=== PATIENT | female | born 1955 | race Caucasian/White ===

== ENCOUNTER 2021-09-30 19:46 | Emergency (ER) | payer OTHER, SELFPAY ==
--- NOTE | ~2021-09-30 | XR_ITS ---
EXAMINATION: XR WRIST, LEFT XR HAND, LEFT CLINICAL INFORMATION: Deformity. COMPARISON: None TECHNIQUE: 3 views of the left hand and wrist. FINDINGS: There is a comminuted fracture of the distal radial metaphysis. I suspect that this does involve the radial ulnar joint although I do not see the fracture traversing this region. There is significant dorsal angulation of the distal fracture fragment with some impaction and radial displacement of the distal fragment. An accessory ossicle is noted distal to the ulna. No other fractures or dislocations are seen. XR/XR hand wrist LT IMPRESSION: Comminuted distal radial fracture as described above.
--- NOTE | ~2021-09-30 | XR_ITS ---
EXAMINATION: XR WRIST, LEFT XR HAND, LEFT CLINICAL INFORMATION: Deformity. COMPARISON: None TECHNIQUE: 3 views of the left hand and wrist. FINDINGS: There is a comminuted fracture of the distal radial metaphysis. I suspect that this does involve the radial ulnar joint although I do not see the fracture traversing this region. There is significant dorsal angulation of the distal fracture fragment with some impaction and radial displacement of the distal fragment. An accessory ossicle is noted distal to the ulna. No other fractures or dislocations are seen. XR/XR wrist LT 2V IMPRESSION: Comminuted distal radial fracture as described above.
[2021-09-30 19:56] VITALS: BP 141/64; PULSE 77; RESP 18; TEMP 36.7; O2SAT 95; BMI 21.9
--- NOTE | 2021-09-30 20:11 | ED.EXTPRO ---
HPI - Extremity Problem General Chief complaint: Extremity Injury, Upper Stated complaint: fall Time Seen by Provider: 09/30/21 20:11 Source: patient Limitations: language barrier (Hospital process description writer utilized) History of Present Illness HPI Narrative: This is a 66-year-old female who was going up an escalator when she lost her footing and fell backward, turning and she fell. She and that on her left hand and injured her left wrist. She denies any other injuries. She did not hit her head. She is not on any anticoagulants, does take aspirin. She denies any numbness or tingling to her fingers on her left hand. Pain is moderately severe, worse with movement. The patient was medicated with fentanyl 50 mcg IV pre-hospital Related Data Previous Rx's Medication Instructions Recorded tramadol 50 mg tablet 50 - 100 mg PO Q4H PRN #20 tab 09/30/21 Allergies Allergy/AdvReac Type Severity Reaction Status Date / Time No Known Allergies Allergy Verified 09/30/21 20:18 Review of Systems Review of Systems: No fever or chills No nasal congestion, rhinorrhea, or sore throat No chest pain, shortness of breath, cough, palpitation No abdominal pain, nausea, vomiting, diarrhea, constipation No dysuria, urinary frequency, or hematuria No acute back pain No lower extremity swelling No headache, focal weakness or numbness, speech difficulty, confusion, dizziness No new rash or erythema to skin PMFSH Social History Social History Advance Directives: No Advance Directives Information Provided: No Physical Exam Vital Signs: Vital Signs: Last Vital Signs Temp 98.1 F 09/30/21 19:56 Pulse 77 09/30/21 19:56 Resp 18 09/30/21 19:56 BP 141/64 H 09/30/21 19:56 Pulse Ox 95 09/30/21 19:56 BMI result Body Mass Index 21.9 Const: Other: PERRLA Conj [place] Mucous membranes moist Throat clear Neck supple Lungs CTA Heart RRR no murmurs rubs or gallops Abs soft, non tender, non distended Extremities no pitting edema; left wrist with deformity and tenderness, no ecchymosis, left and fingers neurovascular intact. No left elbow or shoulder pain or tenderness Neuro alert and oriented x 3, non focal MDM - Extremity (Nontraumatic) MDM Narrative Medical decision making narrative: Patient with a fall and left wrist injury, has a comminuted distal radius fracture, with dorsal displacement. Hematoma block was placed with 2% lidocaine, 5 mL, after cleansing the skin with Betadine, with good affect. Reduction of the fracture and splinting were done, which the patient tolerated well. Case was discussed with Shantel of Orthopedics, and the patient will be contacted by Dr. Fabian's office as she will need ORIF Imaging Data Left wrist x-ray: Radiologist's impression: FINDINGS: There is a comminuted fracture of the distal radial metaphysis. I suspect that this does involve the radial ulnar joint although I do not see the fracture traversing this region. There is significant dorsal angulation of the distal fracture fragment with some impaction and radial displacement of the distal fragment. An accessory ossicle is noted distal to the ulna. No other fractures or dislocations are seen. XR/XR hand wrist LT IMPRESSION: Comminuted distal radial fracture as described above.? Procedures Orthopedic Fracture Reduction Fracture #1: Time Out Performed: Yes Side: left Analgesia: hematoma block Technique: direct manipulation and traction/counter-traction Post Reduction X-rays Demonstrate: acceptable reduction Post-reduction neuro exam: intact Post-reduction vascular exam: intact Splint Applied: Yes Patient Tolerated Procedure: well Orthopedic Splinting/Casting Injury #1: Side: left Upper Extremity Injury Location: wrist Upper Extremity Immobilizer: sugar tong splint Additional Comments: Left arms sling also applied. Splint placed by ED MD with the assistance of physician hotel assistant manager and tech and nurse, holding the patient's wrist in traction during application of the splint Discharge Plan Discharge Clinical Impression: Fracture of left wrist Instructions: Wrist Fracture in Adults (ED) Additional Instructions: Wear the splint and he has an ice pack off and on the next 24 hours. Follow up with Dr. Kinsey of Orthopedics, as you will need surgery to repair and stabilize your wrist. Use ibuprofen and Tylenol for pain. You can also use tramadol as prescribed Prescriptions: New tramadol 50 mg tablet 50 - 100 mg PO Q4H PRN (Reason: pain) Qty: 20 0RF Referrals: Vicente Kinsey MD [Physician] - 2 days
--- NOTE | 2021-09-30 21:30 | PC.NURSE ---
provider @bedside administering nerve block and performing L wrist reduction. pt rabia well. fiberglass splint and tegan wrap applied. pt to f/u with ortho after d/c. son present at bedside and v/u of home care as well
[2021-09-30] MEDS: Ibuprofen Oral Susp 200 MG/10 ML ORAL.SUSP 400 MG PO (22:51)
== END 2021-09-30 23:04 | disposition home or self-care (01) ==
PROVIDERS: Emergency Provider Emergency Medicine; PCP Internal Medicine
DX: S52.502A Unspecified fracture of the lower end of left radius, initial encounter for closed fracture (principal); W10.0XXA Fall (on)(from) escalator, initial encounter; Y93.9 Activity, unspecified; Y92.9 Unspecified place or not applicable; Y99.9 Unspecified external cause status
CPT/HCPCS: 29125; 73100; 73110; 73130; 99283; 99284

== ENCOUNTER 2021-10-05 07:15 | Outpatient (REF) | payer OTHER, SELFPAY ==
--- NOTE | ~2021-10-05 | XR_ITS ---
EXAMINATION: XR WRIST, LEFT CLINICAL INFORMATION: Pain COMPARISON: None TECHNIQUE: PA, lateral, and oblique views of the left wrist. FINDINGS: Fine osseous and soft tissue detail are obscured by overlying casting material. There is a transverse distal radial metaphyseal fracture again noted with slight dorsal displacement of the distal fragment. Ulnar styloid fracture is again noted. The carpal rows are well aligned. XR/XR wrist LT min 3V IMPRESSION: Distal radial metaphyseal fracture with partially improved alignment from prior. Ulnar styloid fracture.
== END 2021-10-05 07:16 | disposition home or self-care (01) ==
LOC: HO.HOSX 07:15
PROVIDERS: Visit Provider Physician Assistant
DX: M25.532 Pain in left wrist (principal); S52.322A Displaced transverse fracture of shaft of left radius, initial encounter for closed fracture; W01.0XXA Fall on same level from slipping, tripping and stumbling without subsequent striking against object, initial encounter; Y93.I9 Activity, other involving external motion; Y92.512 Supermarket, store or market as the place of occurrence of the external cause; Y99.8 Other external cause status; I11.0 Hypertensive heart disease with heart failure; I50.9 Heart failure, unspecified; E78.00 Pure hypercholesterolemia, unspecified
CPT/HCPCS: 29105; 73110; 99202

== ENCOUNTER 2021-10-12 05:53 | Day surgery (SDC) | payer OTHER, SELFPAY ==
--- NOTE | 2021-10-09 08:30 | HO.ANESPROP2 ---
Documented by User: Mendy Cavazos NP 10/09/21 09:14 HPI - Anesthesia Eval Consult details Narrative: 66yo F for Left Radius Distal Fracture ORIF Cardiac cleared Case reviewed with Dr James MCWILLIAMS Active Problems Active Problems: All Active Problems (Updated 10/09/21 @ 08:16 by Sallie Ashley RN) Fracture of left distal radius (Acute) Past Medical History Medical History Anxiety B12 deficiency Diastolic dysfunction Heart problem High blood pressure Hx of coronary angiogram Hyperlipidemia Long QT syndrome Nonischemic congestive cardiomyopathy Sebaceous cyst Subclinical hypothyroidism Syncope TIA (transient ischemic attack) Vitamin D deficiency Surgical History Surgical History Hx of bilateral cataract extraction Social History Social History (Updated 10/05/21 @ 08:38 by OG Feliz) Patient Tobacco Use Status: Never used Tobacco Use of substances other than those prescribed or required for medical reasons: No Are you DNR?: No Advance Directives: No Advance Directives Information Provided: Yes Current occupational status: disabled 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 Meds Allergies Allergy/AdvReac Type Severity Reaction Status Date / Time adhesive Allergy Unknown Verified 10/09/21 08:20 latex Allergy Rash Verified 10/09/21 08:20 Home Medications Medication Instructions Recorded Confirmed Last Taken Type carvedilol 12.5 mg tablet 12.5 mg PO BID 10/05/21 10/12/21 Unknown History cholecalciferol (vitamin D3) 25 25 mcg PO DAILY 10/05/21 10/12/21 Unknown History mcg (1,000 unit) tablet (Vitamin D3) losartan 25 mg tablet 25 mg PO DAILY 10/05/21 10/12/21 Unknown History Exam Exam Date and Time: October 09, 2021 0830 Pertinent Lab Results Pertinent Lab Results: Per cardiac note 07/06/21 Na 141 K 4.2 BUN 16 Creat 0.7 proBNP nml Narrative Narrative: ECHO 2017 Upper nml LV size with normal wall thickness LVER 40-45% global hypokinesis nml RV function Assessment and Plan Assessment Anesthesia Assessment: Chart Reviewed Documented by User: Marisela Liriano MD 10/12/21 10:52 [facility] Past Medical History Medical History Anxiety B12 deficiency Diastolic dysfunction Heart problem High blood pressure Hx of coronary angiogram Hyperlipidemia Long QT syndrome Nonischemic congestive cardiomyopathy Sebaceous cyst Subclinical hypothyroidism Syncope TIA (transient ischemic attack) Vitamin D deficiency Functional capacity: independent ambulation Patient : No Family History Family history of problems with anesthesia: No Surgical History Surgical History Hx of bilateral cataract extraction History of Problems with Anesthesia: No Social History Social History (Updated 10/05/21 @ 08:38 by Rosemarie Huffman [facility]) Patient Tobacco Use Status: Never used Tobacco Use of substances other than those prescribed or required for medical reasons: No Are you DNR?: No Advance Directives: No Advance Directives Information Provided: Yes Current occupational status: disabled 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 Meds Allergies Allergy/AdvReac Type Severity Reaction Status Date / Time adhesive Allergy Unknown Verified 10/09/21 08:20 latex Allergy Rash Verified 10/09/21 08:20 Home Medications Medication Instructions Recorded Confirmed Last Taken Type carvedilol 12.5 mg tablet 12.5 mg PO BID 10/05/21 10/12/21 Unknown History cholecalciferol (vitamin D3) 25 25 mcg PO DAILY 10/05/21 10/12/21 Unknown History mcg (1,000 unit) tablet (Vitamin D3) losartan 25 mg tablet 25 mg PO DAILY 10/05/21 10/12/21 Unknown History Exam Airway Mallampati Class: II TM Dist: >3cm Neck ROM: Full Denture: Upper Partial: Lower Assessment and Plan Final Anesthetic Review Family History of Problems with Anesthesia: No History of Problems with Anesthesia: No ASA Class: I and II Final Preanesthetic Review: No Changes in Pt Med Stat, Consent Obtained/Reviewed and Anes Risks/Benef Reviewed Patient Risk: Intermediate Procedure Risk: Low Anesthetic Plan Anesthetic Plan: GA Disposition: Standard PACU
[2021-10-12] VITALS (9 sets, daily range): BP systolic 115–145; BP diastolic 57–79; PULSE 72–97; RESP 15–16; TEMP 36.6–37.2; O2SAT 94–100; BMI 19.7
--- NOTE | 2021-10-12 | ECG_ITS ---
Test Reason : preop Blood Pressure : / mmHG Vent. Rate : 074 BPM Atrial Rate : 074 BPM P-R Int : 154 ms QRS Dur : 100 ms QT Int : 410 ms P-R-T Axes : 011 008 039 degrees QTc Int : 455 ms Normal sinus rhythm Minimal voltage criteria for LVH, may be normal variant ( [place] product ) Borderline ECG No previous ECGs available Referred By: Mendy Cavazos Electronically Signed By:Chinedu Nguyễn
--- NOTE | ~2021-10-12 | FL_ITS ---
EXAMINATION: XR FLUOROSCOPY WITH IMAGES CLINICAL INFORMATION: Fracture, follow-up. COMPARISON: Radiographs left wrist 10/05/2021, 09/30/2021 TECHNIQUE: Fluoroscopy performed by Dr. Alicia Medina. Fluoroscopy time: 0.5 minutes DAP: 0.048 Gycm2 Images: 2 FINDINGS: Distal radial fracture is reduced with fullness side plate and multiple screws. The hardware is intact. Fracture fragments are in near-anatomic alignment. Ulnar variance is within neutral. There is a mildly distracted fracture base ulnar styloid which is stable. FL/FL guidance in OR IMPRESSION: Status post reduction internal fixation distal radial fracture. Hardware intact.
[2021-10-12] MEDS: Lactated Ringers 1,000 ML 100 ML IVCONT (06:38)
--- NOTE | 2021-10-12 10:27 | MHC.SHP ---
Pre-Procedural Eval Section A Date of Service: 10/12/21 The patient is an INPATIENT: No Changes since office visit: No Cold of Flu in the past 2 weeks, No New Medical Problems, No Changes in Medication and No Patient answered all questions The History & Physical has been completed within 30 days and I have reviewed it.: Yes Section B Chief Complaint: wrist fx Allergies: Allergies Allergy/AdvReac Type Severity Reaction Status Date / Time adhesive Allergy Unknown Verified 10/09/21 08:20 latex Allergy Rash Verified 10/09/21 08:20 Plan I have reviewed the history and physical and performed a pertinent physical examination on my patient. No changes have occurred unless specified.
--- NOTE | 2021-10-12 10:27 | W.PM.OPN ---
Operative Note Operative Note Date of Service: 10/12/21 Narrative: Operative Note Narrative: Preop diagnosis: Left Distal radius fracture, comminuted intra-articular Postop diagnosis: Same Procedure: 1. Left Distal radius fracture open reduction internal fixation, three-part intra-articular Surgeon: Alicia Medina MD Anesthesia: General anesthesia plus regional block Findings: Comminuted intra-articular distal radius fracture. There is a long longitudinal split that extended to the radial aspect of the metaphyseal diaphyseal junction. Implants: A 5 hole narrow Accu Med volar locking plate, with 4x2.3 mm locking pegs/screws, and 4 3.5 mm cortical screws Tourniquet time: 60 for minutes EBL: 5.0 ml Specimen: None Drains: None Complications: None Disposition: Brought to the recovery room in stable condition Plan: Follow-up in 10-14 days for wound check, suture removal and postop radiographs The patient will be placed in either a short-arm cast or a volar wrist splint. Encouraged no lifting of anything heavier than a cell phone. Please encourage active and passive range of motion of the digits. Follow-up at 4-5 weeks postop for repeat radiographs. Indications: The patient is a 66 year old woman with a left comminuted intra-articular distal radius fracture . The risks and benefits of operative treatment, including but not limited to risk of damage to blood vessels, nerves, tendons, infection, recurrence, persistent pain or numbness, incomplete resolution of preoperative symptoms, or need for further surgery were discussed with the patient and they wished to proceed with surgery. Procedure: Once consent was obtained patient was brought back to the operating suite and placed in the operating table in a supine position. A regional block was performed by the anesthesia team. Perioperative antibiotics and anesthesia was administered by the anesthesia team. A tourniquet was applied to the proximal aspect of the left upper extremity and the limb was prepped and draped in a standard surgical fashion. The limb was elevated exsanguinated with Esmarch bandage and the tourniquet inflated to 250 mm of mercury for a total tourniquet time of 64 minutes. The FluoroScan was used throughout the case to assess our reduction, and facilitate implant placement. A gentle closed reduction was 1st performed on the patient's distal radius fracture. Was assessed radiographically before proceeding with the reduction internal fixation. I then made an 8 cm longitudinal incision over the distal aspect of the flexor carpi radialis tendon. The incision was made through the skin to the subcutaneous tissue using a 15. Blade. Then carefully dissected down to flexor carpi radialis tendon she tenotomy scissors. The FCR tendon sheath was then incised longitudinally using tenotomy scissors under direct visualization. The FCR tendon was then retracted ulnarly. I then made a longitudinal incision in the volar forearm fascia through the floor of FCR tendon sheath using tenotomy scissors under direct visualization. I identified the interval between the radial artery and the flexor tendons. This interval was developed further with my index finger, releasing some of the muscular fibers of the flexor pollicis longus. A dull weatlander retractor was then placed. I then created an ulnarly based flap of the pronator quadratus by releasing the radial and distal edges using a 15. Blade. A Nance elevator was used to elevate the pronator quadratus from the volar surface of the distal radius. This then revealed to us our distal radius fracture. An open reduction was then performed on our distal radius fracture. I 1st placed a 0.054 K-wire retrograde through the radial styloid, across the fracture site and into the ulnar aspect of the shaft of the radius as provisional fixation. She was noted to have a longitudinal fracture line that extended from the joint surface proximally exiting at the radial metaphyseal diaphyseal junction. I performed a tenotomy of the brachioradialis tendon at its insertion in the radial styloid to facilitate reduction of our fracture. This was done using tenotomy scissors under direct visualization. I then placed a 5 hole narrow Accu Med volar locking plate on the volar surface of the distal radius. I placed a single K-wire through the distal aspect of the plate and into the distal radius. This was assessed using fluoroscopic images. I was satisfied with the placement of our plate. I then placed 4x 2.3 mm locking screws/pegs in the distal aspect of the plate and distal radius by 1st drilling bicortically with a 1.8 mm drill bit, measuring with a depth gauge, and placing the appropriate length locking screws/pegs. The placement of our plate and screws was then assessed again using fluoroscopic images. The once satisfied with the placement of the volar locking plate and screws on the distal aspect of the distal radius, the plate was then reduced to the shaft of the radius. I then placed 4x 3.5 mm cortical screws to the proximal aspect of the plate and into the shaft of the radius. This was done by 1st drilling bicortically with a 2.8 mm drill bit, measuring with a depth gauge, and placing the appropriate length screw. The provisional 0.054 K-wire was removed. Final radiographs were then obtained. The DRUJ was assessed and found to be stable on exam. I was satisfied with our reduction and placement of all implants. At this point the wound was irrigated with normal saline. The pronator quadratus was reduced back over the volar locking plate using some 3-0 Vicryl suture material. The tourniquet was then deflated and hemostasis was obtained with a brief period of local pressure and bipolar monopolar electrocautery. The subcutaneous layer was then reapproximated using some 4-0 Vicryl suture, and the skin edges were reapproximated using some 5 0 Prolene suture. The wound was then infiltrated with some 1% lidocaine with epinephrine postop pain control. A sterile dressing and a short dorsal splint allowing for active flexion and extension of the digits was applied. The patient appears to have tolerated the procedure well and with no complications. All digits were well vascularized conclusion of the case.
[2021-10-12] MEDS: ondansetron HCL 4 MG/2 ML VIAL IVPUSH (10:50)
--- NOTE | 2021-10-12 12:09 | HO.POSTANES ---
Post Anesthesia Evaluation Post Anesthesia Evaluation Vital Signs: Vital Signs Temp Pulse Resp BP Pulse Ox O2 Del Method O2 Flow Rate 10/12/21 11:43 99.0 F 75 16 127/64 100 Room Air 10/12/21 11:13 72 16 121/60 97 Room Air 10/12/21 10:58 75 16 122/62 97 Nasal Cannula 2 10/12/21 10:43 93 16 115/79 97 Nasal Cannula 2 10/12/21 10:28 86 16 125/63 97 Nasal Cannula 2 10/12/21 10:23 86 16 129/67 98 Nasal Cannula 2 10/12/21 10:18 82 16 116/57 L 98 Nasal Cannula 2 10/12/21 10:13 99.0 F 97 16 141/71 H 94 Room Air 10/12/21 06:18 97.9 F 72 15 145/64 H 99 Room Air Anesthesia: General Endotracheal-GETA Mental Status: Awake Pain Control: Satisfactory Nausea/Vomiting: None Hydration: Adequate Anesthesia-Related Issues: No Anes. Related Issues
== END 2021-10-12 12:27 | disposition home or self-care (01) ==
PROVIDERS: PCP Internal Medicine; Visit Provider Orthopaedic Surgery
PROC: (CPT 25609; principal; 2021-10-12 07:30)
DX: S52.572A Other intraarticular fracture of lower end of left radius, initial encounter for closed fracture (principal); W10.0XXA Fall (on)(from) escalator, initial encounter; Y93.89 Activity, other specified; Y92.512 Supermarket, store or market as the place of occurrence of the external cause; Y99.8 Other external cause status; I42.8 Other cardiomyopathies; I11.0 Hypertensive heart disease with heart failure; I50.30 Unspecified diastolic (congestive) heart failure; I45.81 Long QT syndrome; E78.00 Pure hypercholesterolemia, unspecified; E03.8 Other specified hypothyroidism; Z86.73 Personal history of transient ischemic attack (TIA), and cerebral infarction without residual deficits; Z79.82 Long term (current) use of aspirin; Z79.899 Other long term (current) drug therapy; Z91.040 Latex allergy status
CPT/HCPCS: 25609; 93005; C1713; C1769; J0690; J1100; J2250; J2405; J2795; J3010

== ENCOUNTER 2021-10-27 13:36 | Outpatient (REF) | payer OTHER, SELFPAY ==
--- NOTE | ~2021-10-27 | XR_ITS ---
EXAMINATION: XR WRIST, LEFT CLINICAL INFORMATION: Left wrist pain. Fracture follow up. COMPARISON: 10/12/2021 and studies dating back to 09/30/2021. TECHNIQUE: PA, lateral, and oblique views of the left wrist. FINDINGS: The patient is status post sideplate and screw fixation of comminuted intra-articular fracture of the distal left radius. There is anatomic alignment of the radiocarpal joint. Ulna styloid fracture is again seen. XR/XR wrist LT min 3V IMPRESSION: Status post intraoperative repair of comminuted distal left radial fracture without significant change from study of 10/12/2021.
== END 2021-10-27 13:37 | disposition home or self-care (01) ==
LOC: HO.HOSX 13:36
PROVIDERS: Visit Provider Orthopaedic Surgery
DX: M25.532 Pain in left wrist (principal)
CPT/HCPCS: 73110

== ENCOUNTER 2021-11-25 07:31 | Outpatient (REF) | payer OTHER, SELFPAY ==
--- NOTE | ~2021-11-25 | XR_ITS ---
EXAMINATION: XR WRIST, LEFT CLINICAL INFORMATION: Pain. Fracture. COMPARISON: Previous x-ray September 2021 TECHNIQUE: PA, lateral, and oblique views of the left wrist. FINDINGS: There is a plate and screws transfixing the left distal radius fracture. Orthopedic hardware appears intact. There is evidence of interval healing with obscured fracture line compared to previous exams. There is an old ulnar styloid fracture that appears unchanged. Soft tissues are unremarkable. XR/XR wrist LT min 3V IMPRESSION: Healing left distal radius fracture.
== END 2021-11-25 07:32 | disposition home or self-care (01) ==
LOC: HO.HOSX 07:31
PROVIDERS: Visit Provider Physician Assistant
DX: M25.532 Pain in left wrist (principal)
CPT/HCPCS: 73110

== ENCOUNTER 2022-01-07 07:40 | Outpatient (REF) | payer OTHER, SELFPAY ==
--- NOTE | ~2022-01-07 | XR_ITS ---
EXAMINATION: XR WRIST, LEFT CLINICAL INFORMATION: Pain COMPARISON: Multiple priors, most recent left wrist radiograph dated 11/25/2021. TECHNIQUE: PA, lateral, and oblique views of the left wrist. FINDINGS: Redemonstration of a distal radial volar stabilization plate with fixation screws. No hardware fracture. No perihardware lucency to suggest loosening or infection. Redemonstration of a distal radial fracture in unchanged anatomic alignment with decreased conspicuity of the fracture lines which likely indicates interval healing. Redemonstration of a corticated ossification adjacent to the ulnar styloid which is unchanged and may represent a nonfused fracture versus accessory ossicle. No acute fracture or dislocation. Osteopenia. XR/XR wrist LT min 3V IMPRESSION: Distal radial ORIF across a nondisplaced fracture in unchanged anatomic alignment. Evidence of interval increased osseous bridging/healing when compared to the prior radiograph.
== END 2022-01-07 07:41 | disposition home or self-care (01) ==
LOC: HO.HOSX 07:40
PROVIDERS: Visit Provider Physician Assistant
DX: S52.502A Unspecified fracture of the lower end of left radius, initial encounter for closed fracture (principal)
CPT/HCPCS: 73110; 99212

== ENCOUNTER 2022-03-09 11:30 | Outpatient (RCR) | payer OTHER, SELFPAY ==
--- NOTE | 2021-11-17 16:32 | MHC.OT.OEV ---
[address] [phone] F: [phone] Occupational Therapy Evaluation Diagnosis: s/p ORIF left DR bernal Date of Onset: 09/30/21 Date of Surgery: 10/12/21 Attending Provider: Alicia Medina Prescribed Treatment: Eval and treat, stiffness in fingers. Gentle ROM MD Follow Up Appointment: History of Current Condition: Pt reports a fall in the [place] , seen in the ED . Surgical repair ORIF. Pt had her follow up with Dr Medina 2 wks later and referred to begin OT Pt still in forearm based cast. Significant Medical History: Anxiety B12 deficiency Diastolic dysfunction Heart problem High blood pressure Hx of coronary angiogram Hyperlipidemia Long QT syndrome Nonischemic congestive cardiomyopathy Sebaceous cyst Subclinical hypothyroidism Syncope TIA (transient ischemic attack) Vitamin D deficiency Precautions/Contraindications: Patient Goals: Do things normal Hand Dominance: Right Observations: QuickDASH Score: 74 Prior Level of Function and Occupation Self Care, Employment, Leisure: Indep in all areas. 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 just light activity with right dominant hand Sleep: Interrupted with turning over, pain at left shoulder Driving: NA Vision: Glasses Balance: Pain Assessment Pain Score: 5 Pain Scale Used: Numeric (0 - 10) Pain Location and Description: 0-5 left wrist with stretching fingers and at rest Aggravating Factors: stretching fingers, sometimes at rest Alleviating Factors: Skin and Soft Tissue Assessment Skin and Soft Tissue: Comments: Left wrist in cast to DPC and distal to DPC at ulnar aspect Mild hand edema, digits stiff MF and RF swan neck with composite digit ext Nerve assessment Ulnar Nerve: Median Nerve: Radial Nerve: Comments: Sensory Assessment Temperature: Light Touch: WNL Proprioception: Vibration: Comments: Edema Assessment Upper Extremity: Right Impaired Lower Extremity: Comments: Mild left hand digits 1-5 Dexterity Assessment Dexterity: Left Impaired Comments: Non functional due to forearm based wrist cast Special Tests Comments: AROM(PROM) Strength Cervical Cervical Flexion: Cervical Extension: Cervical Lateral Flexion: Cervical Rotation: Comments: Shoulder Flexion: Extension: Abduction: Internal Rotation: External Rotation: Comments: WNL Flexion: Extension: Abduction: Internal Rotation: External Rotation: Comments: Elbow Flexion: Extension: Pronation: Supination: Comments: Cast limiting forearm rotation Flexion: Extension: Pronation: Supination: Comments: Wrist Flexion: Extension: Ulnar Deviation: Radial Deviation: Comments: NA cast on Flexion: Extension: Ulnar Deviation: Radial Deviation: Comments: Thumb Thumb CMC Flexion: Thumb MCP Flexion: Thumb IP Flexion: 40 Radial Abduction: Palmar Abduction: Holt (Kapandji 0-10): Comments: Cast blocking thumb motion Digits Index MCP: PIP: 50 DIP: 40 Long MCP: PIP: 50 DIP: 50 Ring MCP: PIP: 55 DIP: 40 Small MCP: PIP: 60 DIP: 40 Comments: MCP WFL, SF cast to DPC Gross Grasp: Lateral Pinch: Two-Point Pinch: Three-Jaw Jacobo: Comments: Patient Education Primary Language: 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 Patient demonstrates Patient verbalizes Barriers to Learning: None Readiness for Learning: Accepting Who was educated? Patient Comments: Required multi reps with CAMPO assist faded to indep with MCP flexion blocking ex for hook fist Plan of Care Assessment: Pt is a 66 yo female 5 wks PO ORIF for a left DR fx Today she presents with cast stll on. Modified at [facility] for pt comfort Digits are stiff with possible tendon adhesion limiting digit ext Pt previously indep in all area , now reports significant difficulty with daily tasks with a Quick DASH score of 75 pts. She will benefit from OT to address the problems stated above and progress when her cast is removed STG Duration: 3 wks Short Term Goals: Demo indep with HEP Demo light prehension activity when cast is removed Left hand use with light ADL Thumb op to SF LTG Duration: 6 wks Longterm Goals: Left wrist ext to 60 deg Left hand digit ext to neutral Left hand brim stretcher to 20 lb Left hand use with bimanual home making activities with modifications as needed Indep with her HEP and ex progression Frequency and Duration: The patient will be seen 2x wk x 6 wks Treatment Plan: Therapeutic Exercise Therapeutic Activity Home Exercise Program Splinting Neuro Re-ed Patient Education ADL Training Ultrasound Fluidotherapy MHP Soft Tissue Mobilization Electronically Signed By: Kezia Rojas OT CHT CLT Reviewed/agree with student documentation: N/A Therapist: Please sign and return to therapist, Thank you for your referral.
--- NOTE | 2022-04-07 15:33 | MHC.OT.DC ---
[address] [phone] F: [phone] Occupational Therapy Discharge Note Provider: Alicia Medina Diagnosis: s/p ORIF left DR bernal Date of Surgery: 10/12/21 Date of Evaluation: 11/17/21 Date of Discharge: 03/09/22 Treatments to Date: 19 Cancellations to Date: No Shows to Date: Discharge Status: Achieved Goals Improved Function Independent with HEP Discharge Summary: Pt reports less difficulty with homemaking tasks due to left hand strengthening and being able to flatten her hand Improved digit flexion to DPC (except chronic middle finger contracture) Wrist ROM plateau at 45 deg ext and 52 deg flexion Connie Cleaner strenght improving at 25 lb Pt is indep with her HEP . Electronically Signed By: Kezia Rojas OT CHT CLT Reviewed/agree with student documentation: N/A Therapist: Please Sign and return to therapist, thank you for your referral.
== END 2022-03-09 14:00 | disposition home or self-care (01) ==
LOC: HO.OT 11:30
PROVIDERS: PCP Internal Medicine; Visit Provider Orthopaedic Surgery
DX: M25.642 Stiffness of left hand, not elsewhere classified (principal)
CPT/HCPCS: 29125; 29130; 97035; 97110; 97165; 97760